=== PATIENT | male | born 1965 | race Caucasian/White ===

== ENCOUNTER 2018-05-04 11:57 | Emergency (ER) | payer MEDICAID | END 2018-05-04 15:11 | disposition home or self-care (01) | LOC: FTE 11:57 | DX: Z48.00 Encounter for change or removal of nonsurgical wound dressing (principal) | CPT/HCPCS: 99283; Z7502 ==

== ENCOUNTER 2018-05-11 09:56 | Emergency (ER) | payer MEDICAID ==
[2018-05-11] MEDS ORDERED: morphine 4 MG/ML VIAL IV (11:10)
[2018-05-11] MEDS ORDERED: ONDANSETRON 4 MG INJ IV (11:10)
[2018-05-11] MEDS ORDERED: SOD CHLORIDE 0.9% 1,000 ML IV (11:10)
[2018-05-11] MEDS ORDERED: LIDOCAINE/MYLANTA 40 ML BTL PO (11:30)
== END 2018-05-11 11:45 | disposition home or self-care (01) ==
LOC: FTE 09:56
DX: Z48.01 Encounter for change or removal of surgical wound dressing (principal)
CPT/HCPCS: 99281; J7030

== ENCOUNTER 2018-05-18 14:09 | Emergency (ER) | payer MEDICAID | END 2018-05-18 17:59 | disposition home or self-care (01) | LOC: FTE 14:09 | DX: Z48.01 Encounter for change or removal of surgical wound dressing (principal) | CPT/HCPCS: 99281; Z7502 ==